=== PATIENT | female | born 1960 | race Two or more races ===

== ENCOUNTER 2022-06-11 05:43 | Day surgery (SDC) | payer OTHER ==
[~2022-06-11] VITALS: Ht 152.4 cm; Wt 122.5 kg
[~2022-06-11 05:43] MED LIST: ADULT LOW DOSE81 M1 PO; ATORVASTATIN CA10 MG PO; AZOR 5-40 MG T1 EACH PO; HYDROCHLOROTH12.5 MG PO; LEVOXYL50 MCG PO; MONTELUKAST SOD10 MG PO; SYMBICORT 16010.2 GM IH; TOPROL XL25 M1 PO
== END 2022-06-11 12:25 | disposition home or self-care (01) ==
LOC: CIR.AMB 05:43
PROVIDERS: ATTEND Specialist
DX: N84.0 Polyp of corpus uteri (principal); Z20.822 Contact with and (suspected) exposure to COVID-19; I10 Essential (primary) hypertension; F17.210 Nicotine dependence, cigarettes, uncomplicated; E03.9 Hypothyroidism, unspecified

== ENCOUNTER → 2024-08-28 10:11 | Outpatient (CLI) | payer OTHER ==
[2024-08-28 10:50] LABS: PH,URINE 5.5 (5.0-8.0); URINE APPEARANCE Cloudy; URINE BILIRRUBIN Small (NEGATIVE); URINE BLOOD Negative; URINE COLOR Dark Yellow; URINE GLUCOSE Negative (NEGATIVE); URINE KETONE Trace (NEGATIVE); URINE LEUKOCYTE Small; URINE NITRATE Negative; URINE PROTEIN 30 (NEGATIVE)
[2024-08-28 10:53] LABS: URINE BACTERIA 2562.9 uL (0.0-1933); URINE RBC 120.7 uL (0.0-20.8); URINE WBC 61.9 uL (0.0-23.2)
[2024-08-28 11:19] LABS: HEMATOCRIT 38.6 % (36.0-45.00); HEMOGLOBIN 13.2 g/dL (12.0-15.00); MEAN CELL VOLUME 84.2 fL (80.00-100.00); MEAN CORPUSCULAR HEMOGLOBIN 28.8 pg (27.00-32.0); MEAN CORPUSCULAR HGB CONC 34.2 g/dl (32.0-36.0); PLATELET COUNT 230 K/uL (150-450); RED BLOOD COUNT 4.58 M/uL (4.00-6.00); RED CELL DISTRIBUTION WIDTH 14.4 % (11.5-14.5)
[2024-08-28 11:23] LABS: INR 1.05; PARTIAL THROMBOPLASTIN TIME 28.1 SECONDS (22.0-34.0); PROTHROMBIN TIME 11.4 SECONDS (9.0-11.5)
[2024-08-28 11:25] LABS: URINE CAST 1.17 uL (0.0-1.40)
[2024-08-28 11:27] LABS: URINE CRYSTALS MANY /HPF; URINE EPITHELIAL CELLS 0-4 /HPF
[2024-08-28 11:55] LABS: ALBUMIN 3.7 gm/dL (3.4-5.0); BILIRUBIN TOTAL 0.68 mg/dL (0.3-1.2); CALCIUM 9.8 mg/dL (8.5-10.1); CREATININE SERUM 0.86 mg/dL (0.55-1.02); GFR 66.22; GLOBULINA 2.9 G/DL (2.4-3.5); POTASSIUM 3.85 mEq/L (3.5-5.1); TOTAL PROTEIN 6.6 gm/dL (6.4-8.2)
== END | disposition home or self-care (01) ==
LOC: LAB 10:11
PROVIDERS: ATTEND Internal Medicine
DX: E11.9 Type 2 diabetes mellitus without complications (principal); I10 Essential (primary) hypertension; D68.9 Coagulation defect, unspecified; N39.0 Urinary tract infection, site not specified; Z01.818 Encounter for other preprocedural examination